=== PATIENT | female | born 1975 | race Caucasian/White ===

== ENCOUNTER 2018-06-27 08:36 | Inpatient (IN) | payer OTHER ==
[~2018-06-27] VITALS: Ht 165.1 cm; Wt 78.0 kg
[2018-06-27] MEDS ORDERED: LEVOFLOXACIN 500 MG/D5W 100 ML IV ONE (09:30)
[2018-06-27] MEDS ORDERED: CLINDAMYCIN 600 mg/50mL D5W 50 ML IV ONE (09:30)
[2018-06-27] MEDS ORDERED: LR 1,000 ML IV SCH (10:53)
[2018-06-27] MEDS ORDERED: MEPERIDINE HCL/PF 25 MG/ML DISP.SYRIN IVP PRN (11:00)
[2018-06-27] MEDS ORDERED: HYDROmorphone 2 MG/ML VIAL IVP PRN ×2 (11:00)
[2018-06-27] MEDS ORDERED: ONDANSETRON HCL 4 MG/2 ML VIAL IVP PRN (12:00)
[2018-06-27] MEDS ORDERED: HYDROmorphone 1 MG INJ. 1 MG/ML AMPUL ONE ×2 (12:44→13:12)
[2018-06-27] MEDS: HYDROmorphone 1 MG INJ. 1 MG/ML AMPUL IVP PRN ×2 (12:45→13:05)
[2018-06-27] MEDS: SIMETHICONE 80 MG TAB.CHEW PO PRN (18:26)
[2018-06-27] MEDS: OXYCODONE/ACETAMINOPHEN 5-325 TABLET PO PRN ×2 (18:26→21:29)
[2018-06-27] MEDS: IBUPROFEN 800 MG TABLET PO PRN (20:11)
[2018-06-27] MEDS ORDERED: SENNOSIDES/DOCUSATE SODIUM 1 TAB TABLET(SENOKOT-S) PO PRN ×2 (21:00)
[2018-06-28] MEDS: OXYCODONE/ACETAMINOPHEN 5-325 TABLET PO PRN ×7 (00:07→22:22)
[2018-06-28] MEDS: LR 1,000 ML IV SCH (00:09)
[2018-06-28] MEDS: TEMAZEPAM 15 MG CAPSULE PO PRN ×2 (02:03→23:22)
[2018-06-28] MEDS: IBUPROFEN 800 MG TABLET PO PRN ×3 (02:03→13:41)
[2018-06-28] MEDS ORDERED: DIPHENHYDRAMINE INJ 50 MG/ML VIAL IVP ONE (03:45)
[2018-06-28 06:49] LABS: HEMATOCRIT 24.5 % (36-48); HEMOGLOBIN 8.1 g/dL (12.0-16.0)
[2018-06-28] MEDS ORDERED: DIPHENHYDRAMINE INJ 50 MG/ML VIAL IVP PRN ×2 (08:45)
[2018-06-28] MEDS ORDERED: DIPHENHYDRAMINE INJ 50 MG/ML VIAL ONE (08:50)
[2018-06-28] MEDS ORDERED: DIPHENHYDRAMINE HCL 50 MG CAPSULE ONE (16:07)
--- NOTE | 2018-06-28 20:42 | NUR ---
PT TRANSFERRED FROM OB TO [facility] Report given to FANTA from OB RN. Patient resting in room 130B.
--- NOTE | 2018-06-28 20:45 | NUR ---
OPENING NOTE RECEIVED ENDORSEMENT REPORT FROM AN NURSE WISAM AT BEDSIDE. PT IS AOX4, RESTING COMFORTABLY IN BED WITH EYES OPEN. AT BEDSIDE. CHEST RISE EVEN AND UNLABORED. NO SOB NOTED, NO DISTRESS NOTED. PT DENIED PAIN AT THIS TIME. IS AT BEDSIDE, PT ABLE TO INSPIRATE 1200. INSTRUCTED PT HOW TO USE IS AND TO USE IT 10X EVERY HOUR WHILE AWAKE, PT VERBALIZED UNDERSTANDING. PT'S SKIN DRY AND CLEAN.PT INSTRUCTED HOW TO USE CALL LIGHT AND ROOM PHONE, PT VERBALIZED UNDERSTANDING. PT ORIENTED TO HOSPITAL ROOM AND EDUCATED ON SAFETY, PT INSTRUCTED TO USE CALL LIGHT TO CALL FOR ASSISTANCE, PT VERBALIZED UNDERSTANDING. SAFETY MEASURES IN PLACE CALL LIGHT/ROOM PHONE WITHIN REACH, BEDSIDE TABLE WITHIN REACH, BED WHEELS LOCKED, BED IN LOWEST POSITION, BED RAILS UP X3 AND BED ALARM ON. WILL CONTINUE TO MONITOR PT AND CONTINUE POC.
--- NOTE | 2018-06-28 21:01 | NUR ---
Pt c/o constipation. Administered Addendum: 06/28/18 at 2103 by Patito Booth RN Administered senchaniot PO 1 tab as ordered.
[2018-06-28 21:17] VITALS: BP_SYST 114
--- NOTE | 2018-06-28 22:25 | NUR ---
RN ROUNDS PT RESTING COMFORTABLY IN BED WITH EYES OPEN. CHEST RISE EVEN AND UNLABORED. NO SOB NOTED, NO DISTRESS NOTED. VITAL SIGNS WNL. PT REPORTS PAIN AT THIS TIME. PRN PERCOCET 2 TABS ADMINISTERED ORDERED FOR PAIN.NO OTHER NEEDS AT THIS TIME. SAFETY MEASURES IN PLACE CALL LIGHT/ROOM PHONE WITHIN REACH, BEDSIDE TABLE WITHIN REACH, BED WHEELS LOCKED, BED IN LOWEST POSITION, BED RAILS UP X3 AND BED ALARM ON. WILL CONTINUE TO MONITOR PT AND CONTINUE POC.
--- NOTE | 2018-06-28 22:33 | NUR ---
PAIN MEDICATION ADMINISTRATION PT RESTING COMFORTABLY IN BED WITH EYES OPEN. CHEST RISE EVEN AND UNLABORED. NO SOB NOTED NO DISTRESS NOTED. PT REPORTS 7/10 LOWER ABD PAIN , PRN PO 2 TAB PERCOCET ADMINISTERED FOR PAIN ORDERED, PT TOLERATED WELL. WILL MONITOR MEDICATION EFFECTIVENESS. NO OTHER NEEDS AT THIS TIME. SAFETY MEASURES IN PLACE CALL LIGHT/ROOM PHONE WITHIN REACH, BEDSIDE TABLE WITHIN REACH, BED WHEELS LOCKED, BED IN LOWEST POSITION, BED RAILS UP X3 AND BED ALARM ON. WILL CONTINUE TO MONITOR PT AND CONTINUE POC.
[2018-06-29 00:19] VITALS: BP_SYST 111
--- NOTE | 2018-06-29 00:58 | NUR ---
RN ROUNDS PT RESTING COMFORTABLY IN BED WITH EYES CLOSED. CHEST RISE EVEN AND UNLABORED. NO SOB NOTED, NO DISTRESS NOTED. NO S/S OF PAIN AR THIS TIME. SAFETY MEASURES IN PLACE CALL LIGHT/ROOM PHONE WITHIN REACH, BEDSIDE TABLE WITHIN REACH, BED WHEELS LOCKED, BED IN LOWEST POSITION, BED RAILS UP X3 AND BED ALARM ON. WILL CONTINUE TO MONITOR PT AND CONTINUE POC.
[2018-06-29] MEDS: OXYCODONE/ACETAMINOPHEN 5-325 TABLET PO PRN ×5 (01:43→13:56)
--- NOTE | 2018-06-29 01:43 | NUR ---
Pt c/o pain. Administered PRN percocet 2 tab PO as ordered.
--- NOTE | 2018-06-29 01:45 | NUR ---
RN ROUNDS PT RESTING COMFORTABLY IN BED WITH EYES OPEN. CHEST RISE EVEN AND UNLABORED. NO SOB NOTED, NO DISTRESS NOTED. PT REPORTS HAVING PAIN, PRN PERCOCET ADMINISTERED ORDERED. PT TOLERATED WELL. SAFETY MEASURES IN PLACE. WILL CONTINUE TO MONITOR PT AND CONTINUE POC.
[2018-06-29] MEDS: DIPHENHYDRAMINE HCL 50 MG CAPSULE PO PRN ×2 (02:50→09:10)
--- NOTE | 2018-06-29 02:56 | NUR ---
RN ROUNDS RN ROUNDS RESTING COMFORTABLY IN BED WITH EYES OPEN. CHEST RISE EVEN AND UNLABORED. NO SOB NOTED, NO DISTRESS NOTED. PT REPORTS ITCHINESS, PRN BENADRYL ADMINISTERED ORDERED PT TOLERATED WELL. SAFETY MEASURES IN PLACE CALL LIGHT/ROOM PHONE WITHIN REACH, BEDSIDE TABLE WITHIN REACH, BED WHEELS LOCKED, BED IN LOWEST POSITION, BED RAILS UP X3 AND BED ALARM ON. WILL CONTINUE TO MONITOR PT AND CONTINUE POC.
--- NOTE | 2018-06-29 04:04 | NUR ---
RN ROUNDS PT RESTING COMFORTABLY IN BED WITH EYES CLOSED. CHEST RISE EVEN AND UNLABORED. NO SOB NOTED, NO DISTRESS NOTED. NO NEEDS AT THIS TIME. SAFETY MEASURES IN PLACE. WILL CONTINUE TO MONITOR PT AND CONTINUE POC.
--- NOTE | 2018-06-29 06:46 | NUR ---
RN ROUNDS PT RESTING COMFORTABLY IN BED WITH EYES CLOSED. CHEST RISE EVEN AND UNLABORED. NO SOB NOTED NO DISTRESS NOTED. NO NEEDS AT THIS TIME. SAFETY MEASURES IN PLACE CALL LIGHT/ROOM PHONE WITHIN REACH, BEDSIDE TABLE WITHIN REACH, BED WHEELS LOCKED, BED IN LOWEST POSITION, BED RAILS UP X3 AND BED ALARM ON. WILL CONTINUE TO MONITOR PT AND CONTINUE POC.
--- NOTE | 2018-06-29 07:39 | NUR ---
CLOSING NOTE ENDORSED PT REPORT TO DAY SHIFT NURSE MILO AT BEDSIDE. PT IS AOX4, RESTING COMFORTABLY IN BED WITH EYES OPEN. CHEST RISE EVEN AND UNLABORED. NO SOB NOTED NO DISTRESS NOTED. PT DENIED PAIN AT THIS TIME. PT'S IVF INFUSING WELL. ALL NEEDS MET THROUGHOUT SHIFT. ALL SCHEDULED MEDICATIONS ADMINISTERED ORDERED. NO OTHER NEEDS AT THIS TIME. SAFETY MEASURES IN PLACE CALL LIGHT/ROOM PHONE WITHIN REACH, BEDSIDE TABLE WITHIN REACH, BED WHEELS LOCKED, BED IN LOWEST POSITION, BED RAILS UP X3 AND BED ALARM ON. PT CARE ENDORSED.
[2018-06-29] MEDS: LR 1,000 ML IV SCH ×6 (07:52→16:49)
[2018-06-29 08:00] VITALS: BP_SYST 119
--- NOTE | 2018-06-29 08:00 | NUR ---
Note Pt sitting up in bed eating her regular diet breakfast at this time. Abdominal incision intact with dressing and abdominal binder. Pt has no IV at this time. No SOB/resp distress or severe pain/discomfort noted at this time. No needs noted at this time. Call light within reach. Pt encouraged to get OOB and ambulate as much as tolerated throughout the shift.
[2018-06-29] MEDS: IBUPROFEN 800 MG TABLET PO PRN ×3 (09:10→18:42)
[2018-06-29] MEDS: SIMETHICONE 80 MG TAB.CHEW PO PRN (09:11)
[2018-06-29] MEDS ORDERED: WATER FOR IRRIGATION,STERILE 1,000 ML IRRIG.SOLN IR ONE (09:50)
[2018-06-29] MEDS ORDERED: KETOROLAC TROMETHAMINE 30 MG VIAL IVP ONE (09:50)
[2018-06-29] MEDS ORDERED: MIDAZOLAM HCL 5 MG/5 ML VIAL IVP ONE (09:50)
[2018-06-29] MEDS ORDERED: BUPIVACAINE /PF 0.25% 30 ML VIAL INJ ONE (09:50)
[2018-06-29] MEDS ORDERED: PROPOFOL 200MG/ 20ML VIAL (DIPRIVAN) IV ONE (09:50)
[2018-06-29] MEDS ORDERED: ONDANSETRON HCL 4 MG/2 ML VIAL IVP ONE (09:50)
[2018-06-29] MEDS ORDERED: ROCURONIUM BROMIDE 10 MG/ML (ZEMURON) IV ONE (09:50)
[2018-06-29] MEDS ORDERED: LIDOCAINE 2%, 20 ML MDV IM ONE (09:50)
[2018-06-29] MEDS ORDERED: DEXAMETHASONE SOD PHOSPHATE 20 MG/5 ML VIAL IVP ONE (09:50)
[2018-06-29] MEDS ORDERED: LIDOCAINE/EPI 1% 1:100000 20 ML VIAL INJ ONE (09:50)
[2018-06-29] MEDS ORDERED: SODIUM BICARBONATE 8.4% JECT 50 MEQ/50 ML SYRINGE IVP ONE (09:50)
[2018-06-29] MEDS ORDERED: SEVOFLURANE 15 MIN GAS INH ONE (09:50)
[2018-06-29] MEDS ORDERED: fentaNYL CITRATE 250 MCG/5 ML AMP IV ONE (09:50)
[2018-06-29] MEDS ORDERED: NS 1000 ML IV.SOLN IV ONE (09:50)
[2018-06-29] MEDS ORDERED: BUPIVACAINE /EPINEPHRINE/PF 0.25% 30 ML VIAL INJ ONE (09:50)
--- NOTE | 2018-06-29 12:00 | NUR ---
Note Pt has been ambulating in room and to restroom with steady gait independently. Pt given her pain medication and Benadryl as scheduled and requested all shift. Call light within reach.
[2018-06-29 12:58] VITALS: BP_SYST 128
--- NOTE | 2018-06-29 13:45 | NUR ---
Note Pt encouraged to ambulate with her in hallway at this time as much as tolerated. Pt able to pass a little flatus at this time. Call light within reach.
[2018-06-29 16:42] VITALS: BP_SYST 122
--- NOTE | 2018-06-29 17:30 | NUR ---
Note Pt ambulated with her in hallway slowly and with steady gait. Pain tolerable at this time. Pt requested and received 2 tabs of Senokot at this time as well. Dr Deras came to floor and assessed pt and discharge order given. Pt was given verbal discharge instructions and questions/concerns were answered at this time as well.
[2018-06-29 17:42] VITALS: BP_SYST 115
[2018-06-29 18:47] VITALS: BP_SYST 127
--- NOTE | 2018-06-29 18:50 | NUR ---
Note Pt dressed in street clothes and all belongings were packed by pt's and pt. Side table and drawers were packed. Pt was given discharge instructions and pt already has her discharge medications from MD at preop meeting. Pt off the floor via wheelchair to car with all her belongings and discharge paper work. Pt denies any SOB/resp distress or severe abdominal pain/discomfort at this time. Pt stable. Addendum: 06/29/18 at 1937 by Yadira Burkett RN Abdominal incision intact with paper tape and pt has had her abdominal binder on all shift for comfort.
--- NOTE | 2018-06-30 11:44 | NUR ---
Nutrition Update Valente Scale 18 noted. Pt admitted for leiomyoma of uterus, unspecified. Diet: N/A BMI: 28.6 kg/m2 RD to follow per nutrition care standards.
== END 2018-06-29 18:50 | disposition home or self-care (01) | DRG 743 ==
LOC: SMU 08:36 → SPU 11:00 → SMU 06-28 20:24
PROVIDERS: ADMIT Obstetrics & Gynecology; ATTEND Obstetrics & Gynecology
PROC: 0UB90ZZ Excision of Uterus, Open Approach (ICD-10-PCS; principal; 2018-06-27 10:30)
DX: D25.9 Leiomyoma of uterus, unspecified (principal); N92.0 Excessive and frequent menstruation with regular cycle; Z88.0 Allergy status to penicillin
CPT/HCPCS: 36415; 85018-TC; 86886; 86900; 86901; 87081; 88305; J1100; J1170; J1200; J1885; J1956; J2001; J2250; J2405; J2704; J3010; J3490; J7030; J7120; Q0163

== ENCOUNTER 2021-07-13 14:25 | Emergency (ER) | payer BC, OTHER ==
[~2021-07-13] VITALS: Ht 165.1 cm; Wt 87.5 kg
[2021-07-13 14:46] VITALS: BP_SYST 122
--- NOTE | 2021-07-13 15:35 | NUR ---
Patient to ER bed 7 to gown for evaluation. Side rails up. Report given to EDDIE ROSENBAUM.
--- NOTE | 2021-07-13 15:35 | NUR ---
Dr. Dumont at bedside to assess.
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
--- NOTE | 2021-07-13 16:20 | NUR ---
Dr. Dumont to bed 7 to re-evaluate.
[2021-07-13 17:13] LABS: BASOPHILS % (AUTO) 0.3 % (0.0-2.0); EOSINOPHILS % (AUTO) 0.2 % (0.0-4.0); HEMATOCRIT 27.5 % (36-48); HEMOGLOBIN 9.3 g/dL (12.0-16.0); LYMPHOCYTES # (AUTO) 2.8 K/uL (1.0-5.5); LYMPHOCYTES % (AUTO) 24.3 % (20.5-51.5); MEAN CORPUSCULAR HEMOGLOBIN 27 pg (27-31); MEAN CORPUSCULAR HGB CONC 34 % (32-36); MEAN CORPUSCULAR VOLUME 79 fL (79.0-98.0); MONOCYTES # (AUTO) 0.7 K/uL (0.0-1.0); MONOCYTES % (AUTO) 5.8 % (1.7-9.3); NEUTROPHILS % (AUTO) 69.4 % (40.0-70.0); PLATELET COUNT (AUTO) 390 K/uL (130-430); RED BLOOD CELL COUNT(AUTO) 3.47 MIL/uL (4.2-6.2); RED CELL DISTRIBUTION WIDTH 14.8 % (9.0-15.0); WHITE BLOOD COUNT (AUTO) 11.6 K/uL (4.8-10.8)
[2021-07-13 17:16] LABS: CALCIUM 8.3 mg/dL (8.4-11.0); CREATININE 0.71 mg/dL (0.55-1.30); POTASSIUM 3.9 mmol/L (3.5-5.1)
[2021-07-13 17:27] LABS: ALBUMIN 3.4 g/dL (3.4-4.8); TOTAL BILIRUBIN 0.4 mg/dL (0.0-1.0)
--- NOTE | 2021-07-13 17:30 | NUR ---
# 20 gauge angiocath placed to right hand. Use of asceptic technique. Opsite placed over site. Blood return noted. Flushed with 10 cc of normal saline. No evidence of infiltration noted. Patient tolerated well.
--- NOTE | 2021-07-13 17:40 | NUR ---
CT scan complete.
[2021-07-13] MEDS: KETOROLAC TROMETHAMINE 15 MG VIAL IVP ONE (17:55)
[2021-07-13] MEDS: HYDROcodone/ACETAMIN 7.5-325 MG TAB PO ONE ×2 (17:56→20:30)
--- NOTE | 2021-07-13 18:01 | NUR ---
Pt resting quietly awaiting CT result and disposition.
--- NOTE | 2021-07-13 18:30 | NUR ---
U/S ordered, waiting for radiology.
[2021-07-13] MEDS ORDERED: HYDR-3921 PO (18:31)
--- NOTE | 2021-07-13 18:58 | NUR ---
Report called to ROBI Colón who will assume care.
--- NOTE | 2021-07-13 19:15 | NUR ---
Ultrasound at bedside.
[2021-07-13] MEDS ORDERED: IBUP-1969 PO (20:23)
[2021-07-13] MEDS ORDERED: METH-800 PO (20:23)
[2021-07-13 20:38] VITALS: BP_SYST 122
--- NOTE | 2021-07-13 20:39 | NUR ---
Patient given written and verbal discharge instructions and verbalizes understanding. DR. ALPA MCDANIELS MD discussed with patient the results and treatment provided. Patient in stable condition. ID arm band removed. IV catheter removed intact and dressing applied, no active bleeding. Rx of ROBAXIN, NORCO, IBUPROFEN given. Patient educated on pain management and to follow up with PMD. Pain Scale 0/10 Opportunity for questions provided and answered. Medication side effect fact sheet provided.
== END 2021-07-13 20:38 | disposition home or self-care (01) ==
LOC: SED 14:25
DX: S20.211A Contusion of right front wall of thorax, initial encounter (principal); R10.13 Epigastric pain; Z88.0 Allergy status to penicillin; Z79.899 Other long term (current) drug therapy; V86.59XA Driver of other special all-terrain or other off-road motor vehicle injured in nontraffic accident, initial encounter; Y93.89 Activity, other specified; Y92.89 Other specified places as the place of occurrence of the external cause; Y99.8 Other external cause status
CPT/HCPCS: 36415; 71045; 74177; 76376; 76700; 80053; 81025; 85025; 96374; 99285; J1885; Q9967